=== PATIENT | female | born 2000 | race Caucasian/White ===

== ENCOUNTER → 2024-05-11 | Outpatient (CLI) | payer OTHER ==
[~2024-05-11] MED LIST: MICO100S VAG
[2024-05-14 08:59] LABS: APTIMA MEDIA TYPE Unisex Swab; C. TRACHOMATIS BY TMA Negative (Negative); N. GONORRHOEAE BY TMA Negative (Negative); SPECIMEN SOURCE Vaginal
== END ==
LOC: LAB 09:59 → LAB SHORT 09:59
PROVIDERS: Physician Assistant Medical
DX: R10.2 Pelvic and perineal pain (principal)
CPT/HCPCS: 87491; 87591

== ENCOUNTER → 2024-11-23 | Outpatient (CLI) | payer OTHER | LOC: LAB SHORT 10:25 → LAB 10:25 | PROVIDERS: Family Medicine | DX: Z01.419 Encounter for gynecological examination (general) (routine) without abnormal findings (principal) | CPT/HCPCS: G0123 ==